=== PATIENT | male | born 1970 | race Caucasian/White ===

== ENCOUNTER 2020-09-15 06:55 | Emergency (ER) | payer OTHER ==
[~2020-09-15] VITALS: Ht 175.3 cm; Wt 97.5 kg
[2020-09-15 06:57] VITALS: BP 130/85
[2020-09-15] MEDS ORDERED: ONDANSETRON 4 MG/2 ML VIAL IVP ONE (07:15)
[2020-09-15] MEDS ORDERED: NACL 0.9% 1,000 ML IV SCH (07:15)
[2020-09-15] MEDS ORDERED: KETOROLAC 30 MG/ML VIAL IVP ONE (07:15)
[2020-09-15 07:37] LABS: BASOPHILS % (AUTO) 0.7 % (0.0-2.0); EOSINOPHILS # (AUTO) 0.1 K/uL (0-0.4); EOSINOPHILS % (AUTO) 0.9 % (0.0-4.0); HEMATOCRIT 37.5 % (36-52); HEMOGLOBIN 12.8 g/dL (12.0-18.0); LYMPHOCYTES # (AUTO) 1.3 K/uL (2.0-11.5); LYMPHOCYTES % (AUTO) 19.6 % (20.5-51.1); MEAN CORPUSCULAR HEMOGLOBIN 29 pg (27-31); MEAN CORPUSCULAR HGB CONC 34 g/dL (33-37); MEAN CORPUSCULAR VOLUME 84.8 fL (80-94); MONOCYTES # (AUTO) 0.5 K/uL (0.8-1.0); MONOCYTES % (AUTO) 6.8 % (1.7-9.3); NEUTROPHILS # (AUTO) 4.8 K/uL (1.8-7.7); PLATELET COUNT (AUTO) 234 K/uL (140-450); RED BLOOD CELL COUNT(AUTO) 4.43 MIL/uL (4.20-6.10); WHITE BLOOD COUNT (AUTO) 6.7 K/uL (4.8-10.8)
[2020-09-15 07:38] LABS: BILIRUBIN,URINE NEGATIVE (NEGATIVE); BLOOD, URINE 2+ (NEGATIVE); COLOR,URINE YELLOW (YELLOW); LEUKOCYTE ESTERASE ,URINE NEGATIVE (NEGATIVE); NITRITE, URINE NEGATIVE (NEGATIVE); UGLUCOSE NEGATIVE (NEGATIVE)
[2020-09-15 07:46] LABS: APPEARANCE,URINE CLEAR (CLEAR)
[2020-09-15 07:47] LABS: RBC,URINE 11-20 (MOD) /HPF (0-5); WBC,URINE 0-5 /HPF (0-5)
[2020-09-15 07:48] LABS: ANION GAP 15.2 (8-16); CARBON DIOXIDE 24.7 mmol/L (21-32); CREATININE 1.2 mg/dL (0.6-1.3); POTASSIUM 3.9 mmol/L (3.5-5.1)
[2020-09-15 08:48] VITALS: BP 130/85
== END 2020-09-15 08:47 | disposition home or self-care (01) ==
LOC: MED 06:55
DX: R31.29 Other microscopic hematuria (principal); N40.1 Benign prostatic hyperplasia with lower urinary tract symptoms; R11.0 Nausea; Z98.890 Other specified postprocedural states
CPT/HCPCS: 36415; 74176; 80048; 81001; 85025; 96361; 96374; 96375; 99284; J1885; J2405; J7030

== ENCOUNTER 2022-09-12 07:30 | Emergency (ER) | payer OTHER ==
[~2022-09-12] VITALS: Ht 172.7 cm; Wt 103.9 kg
[2022-09-12 07:41] VITALS: BP 135/86
--- NOTE | 2022-09-12 07:46 | NUR ---
PT AMB TO BED 12.
[2022-09-12] MEDS ORDERED: KETOROLAC 30 MG/ML VIAL IM ONE (08:20)
--- NOTE | 2022-09-12 08:28 | NUR ---
Note undone in EDM - 09/12/22 at 0845 by [email or web address] 51 y/o male bib self, c/o right calf pain, pressure sensation 8/10, started this morning around 0300. denies nausea, vomiting, diarrhea. skin is pink/warm/dry, site of pain does not have redness. a&o x4 with even and steady gait. pt denies any fever, cp, sob, or cough at this time. pt states pain is /10 at this time. vss. patient positioned for comfort. hob elevated. bed down. marisela made aware of pt. pmh: denies nka med: 300mg ibuprofen
--- NOTE | 2022-09-12 08:45 | NUR ---
Ultrasound at bedside.
--- NOTE | 2022-09-12 08:45 | NUR ---
51 y/o male bib self, c/o right calf pain, pressure sensation 8/10, started this morning around 0300. denies nausea, vomiting, diarrhea. skin is pink/warm/dry, site of pain does not have redness. a&o x4 with even and steady gait. pt denies any fever, cp, sob, or cough at this time. vss. patient positioned for comfort. hob elevated. bed down. ermd made aware of pt. pmh: denies nka med: 300mg ibuprofen
[2022-09-12 09:07] LABS: BASOPHILS # (AUTO) 0.1 K/uL (0.00-0.22); EOSINOPHILS # (AUTO) 0.1 K/uL (0-0.4); HEMATOCRIT 38.6 % (36-52); HEMOGLOBIN 12.7 g/dL (12.0-18.0); LYMPHOCYTES # (AUTO) 1.3 K/uL (2.0-11.5); LYMPHOCYTES % (AUTO) 23.3 % (20.5-51.1); MEAN CORPUSCULAR HEMOGLOBIN 28 pg (27-31); MEAN CORPUSCULAR HGB CONC 33 g/dL (33-37); MEAN CORPUSCULAR VOLUME 85.8 fL (80-94); MONOCYTES # (AUTO) 0.6 K/uL (0.8-1.0); MONOCYTES % (AUTO) 10.3 % (1.7-9.3); NEUTROPHILS # (AUTO) 3.7 K/uL (1.8-7.7); NEUTROPHILS % (AUTO) 64.4 % (42.2-75.2); PLATELET COUNT (AUTO) 230 K/uL (140-450); RED CELL DISTRIBUTION WIDTH 12.9 % (11.6-13.7); WHITE BLOOD COUNT (AUTO) 5.7 K/uL (4.8-10.8)
[2022-09-12 09:22] LABS: ALBUMIN 3.3 g/dL (3.4-5.0); ANION GAP 6.4 (8-16); CARBON DIOXIDE 30.8 mmol/L (21-32); POTASSIUM 4.2 mmol/L (3.5-5.1); TOTAL BILIRUBIN 0.3 mg/dL (0.0-1.0)
[2022-09-12] MEDS ORDERED: CYCL-711 PO (09:26)
[2022-09-12] MEDS ORDERED: LID5T TP (09:26)
[2022-09-12] MEDS ORDERED: IBUP-2213 PO (09:26)
[2022-09-12 09:55] VITALS: BP 124/78
--- NOTE | 2022-09-12 09:55 | NUR ---
Patient discharged with v/s stable. Written and verbal after care instructions given and explained. Patient alert, oriented and verbalized understanding of instructions. Ambulatory with steady gait. All questions addressed prior to discharge. ID band removed. Patient advised to follow up with PMD. Rx of FLEXERIL, IBUPROFEN & LIDODERM given. Patient educated on indication of medication including possible reaction and side effects. Opportunity to ask questions provided and answered.
== END 2022-09-12 09:55 | disposition home or self-care (01) ==
LOC: MED 07:30
DX: S86.911A Strain of unspecified muscle(s) and tendon(s) at lower leg level, right leg, initial encounter (principal); X58.XXXA Exposure to other specified factors, initial encounter; Y93.89 Activity, other specified; Y92.89 Other specified places as the place of occurrence of the external cause; Y99.8 Other external cause status
CPT/HCPCS: 36415; 80053; 85025; 93971; 96372; 99284; J1885; Q0092

== ENCOUNTER 2023-03-14 09:41 | Emergency (ER) | payer OTHER ==
[~2023-03-14] VITALS: Ht 172.7 cm; Wt 109.3 kg
[~2023-03-14 09:41] MED LIST: CYCL-711 PO; IBUP-2213 PO; LID5T TP
[2023-03-14 09:45] VITALS: BP 117/81
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
--- NOTE | 2023-03-14 10:00 | NUR ---
AMBULATED TO BED IN NO DISTRESS.
--- NOTE | 2023-03-14 10:53 | NUR ---
Pt. c/o of sob x one day lungs CTAB, no resp distress, o2 sat 98% ra regular rate and rhythm, no intercostal retractions denies chest pain, denies hx. of asthma heart sounds normal, no extra heart sounds heard already seen by md, orders pending
[2023-03-14] MEDS ORDERED: ALBUTEROL SULFATE/IPRATROPIU 3 ML SOL IH ONE (11:55)
[2023-03-14] MEDS ORDERED: methylPREDNISolone SS 125 MG/2 ML VIAL IM ONE (11:55)
[2023-03-14 12:14] LABS: BASOPHILS # (AUTO) 0.1 K/uL (0.00-0.22); BASOPHILS % (AUTO) 0.9 % (0.0-2.0); EOSINOPHILS # (AUTO) 0.3 K/uL (0-0.4); EOSINOPHILS % (AUTO) 3.4 % (0.0-4.0); HEMATOCRIT 37.3 % (36-52); HEMOGLOBIN 12.8 g/dL (12.0-18.0); LYMPHOCYTES # (AUTO) 1.5 K/uL (2.0-11.5); LYMPHOCYTES % (AUTO) 18.3 % (20.5-51.1); MEAN CORPUSCULAR HEMOGLOBIN 29 pg (27-31); MEAN CORPUSCULAR HGB CONC 34 g/dL (33-37); MEAN CORPUSCULAR VOLUME 84.8 fL (80-94); MONOCYTES # (AUTO) 0.9 K/uL (0.8-1.0); NEUTROPHILS # (AUTO) 5.4 K/uL (1.8-7.7); NEUTROPHILS % (AUTO) 66.4 % (42.2-75.2); PLATELET COUNT (AUTO) 214 K/uL (140-450); RED BLOOD CELL COUNT(AUTO) 4.39 MIL/uL (4.20-6.10); RED CELL DISTRIBUTION WIDTH 13.1 % (11.6-13.7); WHITE BLOOD COUNT (AUTO) 8.2 K/uL (4.8-10.8)
[2023-03-14 12:32] LABS: ALBUMIN 3.3 g/dL (3.4-5.0); ANION GAP 8.3 (8-16); ASPARTATE AMINOTRANSFERASE 29 U/L (15-37); CARBON DIOXIDE 29.7 mmol/L (21-32); CHLORIDE 105 mmol/L (98-107); CREATININE 1.1 mg/dL (0.6-1.3); GFR ARICAN-AMERICAN 90 mL/min (>90); GLUCOSE 96 mg/dL (74-106); SODIUM SERUM 139 mmol/L (136-145); TOTAL BILIRUBIN 0.4 mg/dL (0.0-1.0); UREA NITROGEN, BLOOD 13 mg/dL (7-18)
[2023-03-14] MEDS ORDERED: PRED20TA5 PO (13:38)
[2023-03-14] MEDS ORDERED: ALBU0.0912 INH (13:38)
--- NOTE | 2023-03-14 13:45 | NUR ---
a/o times 4, feels better about sob, o2 sat98% ra, sr up times 2
--- NOTE | 2023-03-14 15:30 | NUR ---
Patient discharged with v/s stable. Written and verbal after care instructions given and explained. Patient verbalized understanding. Ambulatory with steady gait. All questions addressed prior to discharge. Advised to follow up with PMD.
[2023-03-14 15:46] VITALS: BP 109/72
== END 2023-03-14 13:52 | disposition home or self-care (01) ==
LOC: MED 09:41
DX: J20.9 Acute bronchitis, unspecified (principal); J45.909 Unspecified asthma, uncomplicated; T78.49XA Other allergy, initial encounter; X58.XXXA Exposure to other specified factors, initial encounter; Z79.899 Other long term (current) drug therapy
CPT/HCPCS: 36415; 71045; 80053; 84484; 85025; 93005; 94640; 96372; 99285; J2930; Q0092

== ENCOUNTER 2023-08-13 08:29 | Emergency (ER) | payer OTHER ==
[~2023-08-13] VITALS: Ht 172.7 cm; Wt 97.5 kg
[~2023-08-13 08:29] MED LIST changes: +ALBU0.0912 INH; +PRED20TA5 PO
[2023-08-13 08:43] VITALS: BP 125/78; PULSE 69; RESP 20; TEMP 97.6; O2SAT 96
[2023-08-13] MEDS ORDERED: TETRACAINE HCL/PF 0.5% OPTH 4 ML BTL OP ONE (09:25)
[2023-08-13] MEDS ORDERED: FLUORESCEIN OPTH STRIP 1 MG OP ONE (10:10)
[2023-08-13] MEDS ORDERED: CRUSHER, PILL MC ONE (10:20)
[2023-08-13] MEDS ORDERED: [UNRECOGNIZED DRUG - CODE] OP (11:23)
[2023-08-13] MEDS ORDERED: IBUP-2213 PO (11:23)
== END 2023-08-13 11:36 | disposition home or self-care (01) ==
LOC: MED 08:29
DX: H20.042 Secondary noninfectious iridocyclitis, left eye (principal); Z79.899 Other long term (current) drug therapy
CPT/HCPCS: 99283